=== PATIENT | female | born 1975 | race Caucasian/White ===

== ENCOUNTER 2017-01-04 01:07 | Emergency (ER) | payer OTHER ==
[2017-01-04 01:06] LABS: URINE SOURCE CLEAN CATCH
[~2017-01-04 01:07] MED LIST: BACTRIM DS TABL1 TA1 PO; CIPRO PO; DIFLUCAN PO; LORTAB ELIXIR480 ML PO; NAPROXEN PO; NO MEDICATIONS; PYRIDIUM PO; PYRIDIUM100 MG PO
[2017-01-04 01:08] LABS: URINE APPEARANCE CLEAR; URINE BILIRUBIN NEG (NEG); URINE BLOOD 1+ (NEG); URINE COLOR YELLOW; URINE GLUCOSE NEG (NORM); URINE KETONE NEG (NEG); URINE LEUKOCYTE ESTERASE NEG (NEG); URINE NITRATE NEG (NEG); URINE PH 5.5 (5-8); URINE PROTEIN NEG (NEG); URINE SPECIFIC GRAVITY 1.025 (1.003-1.035); URINE UROBILINOGEN 0.2 MG/DL (NORM)
[2017-01-04 01:10] LABS: MICRO INDICATED? YES
[2017-01-04 01:11] LABS: URINE BACTERIA 1+ (NEG); URINE MUCUS PRESENT; URINE SQUAMOUS EPITHELIAL CELL OCCAS /[HPF]; URINE TRANSITIONAL EPI CELLS FEW /[HPF]
[2017-01-06 09:50] LABS: CHLAMYDIA TRACH Detected (Not Detected); N GONOR Not Detected (Not Detected)
== END 2017-01-04 01:40 | disposition home or self-care (01) ==
LOC: SED 01:07
PROVIDERS: Nurse Practitioner
DX: N39.0 Urinary tract infection, site not specified (principal); Z87.440 Personal history of urinary (tract) infections; F17.200 Nicotine dependence, unspecified, uncomplicated
CPT/HCPCS: 81003; 84703; 87210; 87491; 87591; 87808; 87905; 99284

== ENCOUNTER 2017-02-11 02:54 | Emergency (ER) | payer OTHER ==
[2017-02-11 03:24] LABS: URINE SOURCE CLEAN CATCH
[2017-02-11 03:26] LABS: URINE APPEARANCE HAZY; URINE BILIRUBIN NEG (NEG); URINE BLOOD 2+ (NEG); URINE COLOR YELLOW; URINE GLUCOSE NEG (NORM); URINE KETONE NEG (NEG); URINE LEUKOCYTE ESTERASE 2+ (NEG); URINE NITRATE NEG (NEG); URINE PROTEIN NEG (NEG); URINE SPECIFIC GRAVITY >=1.030 (1.003-1.035); URINE UROBILINOGEN 0.2 MG/DL (NORM)
[2017-02-11 03:27] LABS: MICRO INDICATED? YES
[2017-02-11 03:29] LABS: CULTURE INDICATED? YES; URINE BACTERIA 1+ (NEG); URINE MUCUS PRESENT; URINE SQUAMOUS EPITHELIAL CELL MODERATE /[HPF]
== END 2017-02-11 03:48 | disposition home or self-care (01) ==
LOC: SED 02:54
PROVIDERS: Emergency Medicine
DX: J06.9 Acute upper respiratory infection, unspecified (principal)
CPT/HCPCS: 81003; 84703; 87086; 99283